=== PATIENT | female | born 1990 ===

== ENCOUNTER 2021-08-12 06:57 | Emergency (ER) | payer SELFPAY ==
[2021-08-12 07:12] VITALS: BP 147/98
[2021-08-12] MEDS ORDERED: SODIUM CHLORIDE 0.9% 1000 ML 1,000 ML IV ONE (08:27)
[2021-08-12] MEDS ORDERED: ONDANSETRON 4 MG/2 ML INJ IV ONE (08:27)
[2021-08-12] MEDS ORDERED: MORPHINE 4 MG/1 ML INJ IV ONE (08:27)
[2021-08-12] MEDS ORDERED: HYDROmorphone 1 MG/1 ML INJ IV ONE (09:19)
[2021-08-12 09:45] LABS: Basophils % (Auto) 0.4 % (0.0-1.8); Hematocrit 34.2 % (30.3-42.9); Hemoglobin 10.9 gm/dl (10.1-14.3); Lymphocytes # (Auto) 0.8 K/mm3 (1.2-5.4); Lymphocytes % (Auto) 8.3 % (13.4-35.0); Mean Corpuscular HGB Conc 32 % (30-34); Mean Corpuscular Volume 79 fl (79-97); Monocytes # (Auto) 0.3 K/mm3 (0.0-0.8); Monocytes % (Auto) 2.9 % (0.0-7.3); Platelet Count 232 K/mm3 (140-440); Red Blood Count 4.35 M/mm3 (3.65-5.03)
[2021-08-12 09:49] LABS: Red Cell Distribution Width 24.5 % (13.2-15.2)
[2021-08-12 10:04] LABS: Alanine Aminotransferase 18 units/L (7-56); Albumin 5.2 g/dL (3.9-5); Blood Urea Nitrogen 17 mg/dL (7-17); Calcium 10.5 mg/dL (8.4-10.2); Hemolysis Index 85
[2021-08-12 10:05] LABS: BUN/Creatinine Ratio 34
[2021-08-12 10:38] LABS: Bilirubin,Urine NEG (Negative); Blood,Urine NEG (Negative); Color,Urine Amber (Yellow); Mucus,Urine 3+ /HPF; Urobilinogen,Urine < 2.0 mg/dL (<2.0)
[2021-08-12] MEDS ORDERED: HYDROmorphone 1 MG/1 ML INJ ONE (11:58)
--- NOTE | 2021-08-12 12:27 | Cat Scan Report ---
CT ABDOMEN AND PELVIS WITH INTRAVENOUS CONTRAST INDICATION / CLINICAL INFORMATION: Abdominal pain with nausea and vomiting. TECHNIQUE: 100 cc Omnipaque [address] scans at this location are performed using CT d ose reduction for SHILORA by means of automated exposure control. COMPARISON: None available. FINDINGS: ABDOMEN: There is a gastrostomy tube well situated within the stomach. The distal aspect of the tube overlies the distal gastric antrum. I see no evidence of bowel obstruction, wall thickening or free a ir. The liver, spleen, gallbladder, bile ducts, pancreas, adrenal glands and kidneys demonstrate no signi ficant abnormality. No adenopathy is present. No vascular abnormality is seen. The lung bases are myranda ar. PELVIS: The majority of the colon appears to have been removed. There is a suture line in the right m id hemipelvis posteriorly. The distal ureters and urinary bladder are normal. There is a probable 3 c m fibroid involving the uterine body on the left anteriorly. I see no evidence of adnexal mass or selvin e fluid. I see no evidence of appendicitis or diverticulitis. I do not identify a hernia. No acute os seous abnormality is present. IMPRESSION: No acute abnormality. Signer Name: Jasen Dior MD Signed: 08/12/2021 12:22 PM Workstation Name: [id number]
--- NOTE | 2021-08-12 12:44 | Emergency Department Report ---
ED Abdominal Pain HPI - General Chief Complaint: Abdominal Pain Stated Complaint: ABD PAIN Time Seen by Provider: 08/12/21 08:22 Source: EMS Mode of arrival: Ambulatory Limitations: No Limitations - History of Present Illness Initial Comments: This is a 31-year-old female nontoxic, well nourished in appearance, no acute signs of distress presents to the ED with c/o of nausea and vomiting and abdominal pain several days. Patient describes vomiting as food content and yellow gastric acid. Patient describes abdominal pain as cramping and aching wi th level of 8/10 diffuse. Patient denies chest pain, short of breath, fever, hemoptysis, blood in stool, chills, headache, stiff neck, numbness or tingling. Patient denies any diarrhea or constipation. Denies any blood in stool. Patient denies any recent travels. Patient stated allergies to morphine. Patient stated has past medical history of C. difficile which she is currently taking antibiotics. Patient also stated she is homeless but does have a [facility] at this time which she stated provides her with the antibiotics. Patient currently has a J-tube for the past 3 years. MD Complaint: abdominal pain -: days(s) Location: diffuse Radiation: none Migration to: no migration Severity: mild Severity scale (0 -10): 8 Quality: cramping, aching Consistency: constant Improves With: nothing Worsens With: nothing Associated Symptoms: nausea, vomiting. denies: diarrhea, fever, chills, const ipation, dysuria, hematemesis, hematochezia, melena, hematuria, anorexia, syncope - Related Data Previous Rx's Medication Instructions Recorded Last Taken Type Ondansetron [Zofran Odt] 4 mg PO Q8HR PRN #12 tab.rapdis 08/12/21 Unknown Rx cephALEXin [Keflex] 500 mg PO Q8HR #21 cap 08/12/21 Unknown Rx Allergies Allergy/AdvReac Type Severity Reaction Status Date / Time morphine Allergy Anaphylaxis Verified 08/12/21 08:56 ED Review of Systems ROS: Stated complaint: ABD PAIN Other details as noted in HPI Comment: All other systems reviewed and negative Constitutional: denies: chills, fever Eyes: denies: eye pain, eye discharge, vision change ENT: denies: ear pain, throat pain Respiratory: denies: cough, shortness of breath, wheezing Cardiovascular: denies: chest pain, palpitations Endocrine: no symptoms reported Gastrointestinal: abdominal pain, nausea, vomiting. denies: diarrhea, constipation, hematemesis, melena, hematochezia Genitourinary: denies: urgency, dysuria, discharge Musculoskeletal: denies: back pain, joint swelling, arthralgia Skin: denies: rash, lesions Neurological: denies: headache, weakness, paresthesias Psychiatric: denies: anxiety, depression Hematological/Lymphatic: denies: easy bleeding, easy bruising ED Past Medical Hx - Medications Home Medications: Home Medications Medication Instructions Recorded Confirmed Last Taken Type Ondansetron [Zofran Odt] 4 mg PO Q8HR PRN #12 tab.rapdis 08/12/21 Unknown Rx cephALEXin [Keflex] 500 mg PO Q8HR #21 cap 08/12/21 Unknown Rx ED Physical Exam - General Limitations: No Limitations General appearance: alert, in no apparent distress - Head Head exam: Present: atraumatic, normocephalic - Eye Eye exam: Present: normal appearance - Neck Neck exam: Present: normal inspection, full ROM. Absent: lymphadenopathy - Respiratory Respiratory exam: Present: normal lung sounds bilaterally. Absent: respiratory distress, wheezes, rales, rhonchi, stridor, chest wall tenderness, accessory muscle use, decreased breath sounds, prolonged expiratory - Cardiovascular Cardiovascular Exam: Present: regular rate, normal rhythm, normal heart sounds. Absent: bradycardia, tachycardia, irregular rhythm, systolic murmur, diastolic murmur, rubs, gallop - GI/Abdominal GI/Abdominal exam: Present: soft, tenderness (Diffuse), normal bowel sounds. Ab sent: distended, guarding, rebound, rigid, diminished bowel sounds - Extremities Exam Extremities exam: Present: full ROM - Back Exam Back exam: Present: normal inspection, full ROM - Neurological Exam Neurological exam: Present: alert, oriented X3, normal gait - Psychiatric Psychiatric exam: Present: normal affect, normal mood - Skin Skin exam: Present: warm, dry, intact, normal color. Absent: rash ED Course Vital Signs 08/12/21 07:09 Temperature 98.6 F Pulse Rate 84 Respiratory 16 Rate Blood Pressure 147/98 [Left] O2 Sat by Pulse 99 Oximetry - Reevaluation(s) Reevaluation #1: 08/12/21 12:43 Patient is speaking in full sentences with no signs of distress noted. ED Medical Decision Making - Lab Data Result diagrams: 08/12/21 09:33 08/12/21 09:33 Lab Results 08/12/21 08/12/21 08/12/21 Range/Units 09:33 09:33 09:33 WBC 9.3 (4.5-11.0) K/mm3 RBC 4.35 (3.65-5.03) M/mm3 Hgb 10.9 (10.1-14.3) gm/dl Hct 34.2 (30.3-42.9) % MCV 79 (79-97) fl MCH 25 L (28-32) pg MCHC 32 (30-34) % RDW 24.5 H (13.2-15.2) % Plt Count 232 (140-440) K/mm3 Lymph % (Auto) 8.3 L (13.4-35.0) % [place] % (Auto) 2.9 (0.0-7.3) % Eos % (Auto) 0.0 (0.0-4.3) % Baso % (Auto) 0.4 (0.0-1.8) % Lymph # (Auto) 0.8 L (1.2-5.4) K/mm3 [place] # (Auto) 0.3 (0.0-0.8) K/mm3 Eos # (Auto) 0.0 (0.0-0.4) K/mm3 Baso # (Auto) 0.0 (0.0-0.1) K/mm3 Seg Neutrophils % 88.4 H (40.0-70.0) % Seg Neutrophils # 8.2 H (1.8-7.7) K/mm3 Sodium 142 (137-145) mmol/L Potassium 4.1 (3.6-5.0) mmol/L Chloride 103.5 (98-107) mmol/L Carbon Dioxide 22 (22-30) mmol/L Anion Gap 21 mmol/L BUN 17 (7-17) mg/dL Creatinine 0.5 L (0.6-1.2) mg/dL Estimated GFR > 60 ml/min BUN/Creatinine Ratio 34 % Glucose 159 H (65-100) mg/dL Calcium 10.5 H (8.4-10.2) mg/dL Total Bilirubin 0.20 (0.1-1.2) mg/dL AST 25 (5-40) units/L ALT 18 (7-56) units/L Alkaline Phosphatase 52 (35-129) units/L Total Protein 7.7 (6.3-8.2) g/dL Albumin 5.2 H (3.9-5) g/dL Albumin/Globulin Ratio 2.1 % Lipase 14 (13-60) units/L HCG, Qual Negative (Negative) Urine Color (Yellow) Urine Turbidity (Clear) Urine pH (5.0-7.0) Ur Specific [place] (1.003-1.030) Urine Protein (Negative) mg/dL Urine Glucose (UA) (Negative) mg/dL Urine Ketones (Negative) mg/dL Urine Blood (Negative) Urine Nitrite (Negative) Urine Bilirubin (Negative) Urine Urobilinogen (<2.0) mg/dL Ur Leukocyte Esterase (Negative) Urine WBC (Auto) (0.0-6.0) /HPF Urine RBC (Auto) (0.0-6.0) /HPF U Epithel Cells (Auto) (0-13.0) /HPF Urine Mucus /HPF /08/29 Range/Units 09:39 WBC (4.5-11.0) K/mm3 RBC (3.65-5.03) M/mm3 Hgb (10.1-14.3) gm/dl Hct (30.3-42.9) % MCV (79-97) fl MCH (28-32) pg MCHC (30-34) % RDW (13.2-15.2) % Plt Count (140-440) K/mm3 Lymph % (Auto) (13.4-35.0) % [place] % (Auto) (0.0-7.3) % Eos % (Auto) (0.0-4.3) % Baso % (Auto) (0.0-1.8) % Lymph # (Auto) (1.2-5.4) K/mm3 [place] # (Auto) (0.0-0.8) K/mm3 Eos # (Auto) (0.0-0.4) K/mm3 Baso # (Auto) (0.0-0.1) K/mm3 Seg Neutrophils % (40.0-70.0) % Seg Neutrophils # (1.8-7.7) K/mm3 Sodium (137-145) mmol/L Potassium (3.6-5.0) mmol/L Chloride (98-107) mmol/L Carbon Dioxide (22-30) mmol/L Anion Gap mmol/L BUN (7-17) mg/dL Creatinine (0.6-1.2) mg/dL Estimated GFR ml/min BUN/Creatinine Ratio % Glucose (65-100) mg/dL Calcium (8.4-10.2) mg/dL Total Bilirubin (0.1-1.2) mg/dL AST (5-40) units/L ALT (7-56) units/L Alkaline Phosphatase (35-129) units/L Total Protein (6.3-8.2) g/dL Albumin (3.9-5) g/dL Albumin/Globulin Ratio % Lipase (13-60) units/L HCG, Qual (Negative) Urine Color [place] (Yellow) Urine Turbidity Cloudy (Clear) Urine pH 7.0 (5.0-7.0) Ur Specific [place] 1.024 (1.003-1.030) Urine Protein 30 mg/dl (Negative) mg/dL Urine Glucose (UA) Neg (Negative) mg/dL Urine Ketones Neg (Negative) mg/dL Urine Blood Neg (Negative) Urine Nitrite Neg (Negative) Urine Bilirubin Neg (Negative) Urine Urobilinogen < 2.0 (<2.0) mg/dL Ur Leukocyte Esterase Mod (Negative) Urine WBC (Auto) 15.0 H (0.0-6.0) /HPF Urine RBC (Auto) 1.0 (0.0-6.0) /HPF U Epithel Cells (Auto) 114.0 H (0-13.0) /HPF Urine Mucus 3+ /HPF - Radiology Data [facility] [address] [place] [address] Cat Scan Report Signed Patient: CLAUDIA ROBBINS MR#: [id number] : 1990 Acct:[id number] Age/Sex: 31 / F ADM Date: 08/12/21 Loc: ED Attending Dr: Ordering Physician: SUSANA JUSTIN NP Date of Service: 08/12/21 Procedure(s): CT abdomen pelvis w con Accession Number(s): [id number] cc: SUSANA JUSTIN NP CT ABDOMEN AND PELVIS WITH INTRAVENOUS CONTRAST INDICATION / CLINICAL INFORMATION: Abdominal pain with nausea and vomiting. TECHNIQUE: 100 cc Omnipaque [address] scans at this location are performed using CT dose reduction for [place] by means of automated exposure control. COMPARISON: None available. FINDINGS: ABDOMEN: There is a gastrostomy tube well situated within the stomach. The distal aspect of the tube overlies the distal gastric antrum. I see no evidence of bowel obstruction, wall thickening or free air. The liver, spleen, gallbladder, bile ducts, pancreas, adrenal glands and kidneys demonstrate no significant abnormality. No adenopathy is present. No vascular abnormality is seen. The lung bases are clear. PELVIS: The majority of the colon appears to have been removed. There is a suture line in the right mid hemipelvis posteriorly. The distal ureters and urinary bladder are normal. There is a probable 3 cm fibroid involving the uterine body on the left anteriorly. I see no evidence of adnexal mass or free fluid. I see no evidence of appendicitis or diverticulitis. I do not identify a hernia. No acute osseous abnormality is present. IMPRESSION: No acute abnormality. Signer Name: Jasen Dior MD Signed: 08/12/2021 12:22 PM Workstation Name: [id number] Transcribed By: RT Dictated By: Jasen Dior MD Electronically Authenticated By: Jasen Dior MD Signed Date/Time: 08/12/21 1222 DD/ 1214 TD/TT: - Medical Decision Making This is a 31-year-old female that presents with abdominal pain, n/v and UTI. Patient is stable and was examined by me. Negative signs of symptoms of appendicitis. Labs obtained. UA obtained. CT of abdomen obtained and dictated by the radiologist. Patient is notified of the report with no questions noted by the patient. Vital signs are stable prior to discharge. Patient received medical treatment in the ED which patient stated symptoms has resovled and subsided. Was instructed note to operate any machinery due to possible dr theodore and stated someone will drive the patient home. A by mouth challenge has been obtained and patient tolerated well with no nausea vomiting. Patient was also instructed to Follow-up with a primary care doctor in 3-5 days or if symptoms worsen and continue return to emergency room as soon as possible. At time of discharge, the patient does not seem toxic or ill in appearance. No acute signs of distress noted. Patient agrees to discharge treatment plan of care. No further questions noted by the patient. Critical care attestation.: If time is entered above; I have spent that time in minutes in the direct care of this critically ill patient, excluding procedure time. ED Disposition Clinical Impression: UTI (urinary tract infection) Qualifiers: Urinary tract infection type: acute cystitis Hematuria presence: without hematuria Qualified Code(s): N30.00 - Acute cystitis without hematuria Abdominal pain Qualifiers: Abdominal location: generalized Qualified Code(s): R10.84 - Generalized abdominal pain Nausea & vomiting Qualifiers: Vomiting type: unspecified Qualified Code(s): R11.2 - Nausea with vomiting, unspecified Disposition: 01 HOME / SELF CARE / HOMELESS Is pt being admited?: No Does the pt Need Aspirin: No Condition: Stable Instructions: Abdominal Pain, Adult, [id number], Urinary Tract Infection, Adult, Nausea and Vomiting, Adult, Abdominal Pain (ED) Additional Instructions: Follow-up with a primary care doctor in 3-5 days or if symptoms worsen and continue return to emergency room as soon as possible. Prescriptions: cephALEXin [Keflex] 500 mg PO Q8HR #21 cap Ondansetron [Zofran Odt] 4 mg PO Q8HR PRN #12 tab.rapdis PRN Reason: nausea Referrals: PRIMARY CARE, [Primary Care Provider] - 3-5 Days GLORIA KAUFFMAN MD [Staff Physician] - 3-5 Days Time of Disposition: 12:49
== END 2021-08-12 13:36 | disposition home or self-care (01) ==
LOC: ED 06:57
DX: N39.0 Urinary tract infection, site not specified (principal); R10.9 Unspecified abdominal pain; R11.2 Nausea with vomiting, unspecified; Z91.09 Other allergy status, other than to drugs and biological substances
CPT/HCPCS: 36415; 74177; 80053; 81001; 83690; 84703; 85025; 87086; 96361; 96374; 96375; 99284; J1170; J2270; J2405; J7030; Q9967